=== PATIENT | female | born 1950 | race Caucasian/White ===

== ENCOUNTER → 2020-08-02 11:03 | Outpatient (CLI) | payer MEDICARE, BC, SELFPAY ==
--- NOTE | 2020-08-02 | DI.MG.S_ITS ---
BILATERAL DIGITAL SCREENING MAMMOGRAM 3D/2D WITH CAD: 08/02/2020 CLINICAL: Routine screening. Family history of breast cancer. Comparison is made to exams dated: 01/05/2019 mammogram, 11/08/2017 mammogram, and 08/17/2016 mammogram - [facility] There are scattered fibroglandular elements in both breasts. Current study was also evaluated with a Computer Aided Detection (CAD) system. No significant masses, calcifications, or other findings are seen in either breast. There has been no significant interval change. IMPRESSION: NEGATIVE There is no mammographic evidence of malignancy. A 1 year screening mammogram is recommended. This exam was interpreted at Station ID: [id number]. NOTE: For mammograms, a report in lay terms will be sent to the patient. Approximately 15% of breast malignancies will not be visualized mammographically. In the management of a palpable breast mass, a negative mammogram must not discourage biopsy of a clinically suspicious lesion. Electronically Signed By: Helen araya/marina:08/02/2020 12:52:31 letter sent: Normal Exam ACR BI-RADS Category 1: Negative [id number]
== END ==
PROVIDERS: PCP Family Medicine; Referring Provider Family Medicine; Visit Provider Family Medicine
DX: Z12.31 Encounter for screening mammogram for malignant neoplasm of breast (principal); Z80.3 Family history of malignant neoplasm of breast
CPT/HCPCS: 77063; 77067

== ENCOUNTER → 2020-08-02 11:14 | Outpatient (CLI) | payer MEDICARE, BC, SELFPAY | PROVIDERS: PCP Family Medicine; Referring Provider Orthopaedic Surgery Foot and Ankle Surgery; Visit Provider Orthopaedic Surgery Foot and Ankle Surgery | DX: Z01.818 Encounter for other preprocedural examination (principal) | CPT/HCPCS: 93005 ==

== ENCOUNTER → 2020-08-09 11:15 | Outpatient (CLI) | payer MEDICARE, BC, SELFPAY ==
[2020-08-10 14:46] LABS: COVID19 Sendout Not Detected (Not Detect)
== END ==
PROVIDERS: PCP Family Medicine; Visit Provider Nurse Practitioner
DX: Z11.59 Encounter for screening for other viral diseases (principal)
CPT/HCPCS: 87635

== ENCOUNTER 2020-08-12 08:52 | Day surgery (SDC) | payer MEDICARE, BC, SELFPAY ==
[2020-08-11 08:26] VITALS: BMI 40.0
[2020-08-12] VITALS (10 sets, daily range): BP systolic 108–164; BP diastolic 62–81; PULSE 63–78; RESP 12–21; TEMP 36.2–36.8; O2SAT 92–98; BMI 40.0; BMI 39.6
[2020-08-12] MEDS: ACETAMINOPHEN 325 MG TABLET 975 MG PO (09:17)
[2020-08-12] MEDS: LACTATED RINGERS 1,000 ML 42 ML IV (09:31)
[2020-08-12] MEDS: CEFAZOLIN 2 GM/100 ML FROZ.PIGGY IV (09:38)
--- NOTE | 2020-08-12 09:49 | PM.PREOP ---
Pre-operative Note COVID-19 COVID-19 status: Negative Interval Note History & Physical reviewed/Exam performed by Physician: Yes Changes to H&P: No
--- NOTE | 2020-08-12 10:13 | SUR.OPER ---
Supine on padded OR bed, head on pillow, arms secured on padded arm boards at <90 degrees abduction, legs uncrossed, safety belt at thigh, tape over blanket over lower left leg,gel bump under right thigh blanket stack under foot and right leg draped free
[2020-08-12] MEDS: BUPIVACAINE 0.25% W/ EPI 30 ML VIAL INJ (10:26)
[2020-08-12] MEDS: HALOPERIDOL 5 MG/ML VIAL 1 MG IV (11:27)
--- NOTE | 2020-08-12 11:27 | P.OP_ITS ---
Operative Date/Time/Diagnoses Date of procedure: 08/12/20 Time of procedure: 10:50 Pre-op diagnosis: Hallux rigidus right foot Hammertoe 2nd toe right foot Hammertoe 3rd toe right foot Post-op diagnosis: same Procedure & Clinicians Procedure: Cheilectomy great toe, right CPT code 46212 Rt T5 Hammertoe correction right 2nd toe CPT code 21086-39- T6 Hammertoe correction right 3rd toe CPT code 21243-29-A1 Same procedure as scheduled: Yes Indications: Patient is a 70-year-old female with symptomatic right hallux rigidus with a large dorsal loose body spur and right 2nd and 3rd hammertoes that are rigid. She has exhausted conservative treatment and desires surgery. We discussed options. She has requested a joint sparing procedure for her great toe. She understands that she has intra-articular arthritis of the great toe as well. She would like to proceed with a cheilectomy of the great toe and 2nd and 3rd toe hammertoe corrections. The risks and benefits of the procedure have been discussed with the patient even opportunity to ask questions. The risks of surgery include but are not limited to infection, malunion, nonunion, persistence of pain, damage to nerves and blood vessels, posttraumatic arthritis, DVT, PE, cardiopulmonary complications and . The patient expressed a thorough understanding of the risks and benefits of surgery and has elected to proceed. Consent was signed in the office. Surgeon: Marilin Young Click Yes if Unassisted: Yes Anesthesia Type: General and Local Operative Notes Findings: Great toe arthritis. Large dorsal loose body. Dorsal medial and lateral osteophytes. There is grade 3 and 4 cartilage loss in the dorsal 50% of the great toe joint. Thinning plantar centrally as well. Smaller osteophytes at the proximal phalanx. Second and 3rd toe rigid hammertoes Closure Type: primary Specimen(s): none sent Prosthetic devices, grafts, tissues, transplants, or devices: 045 K-wirex2 Estimated Blood Loss (mL): 5 Blood products transfused: none Tourniquet time (min): 53 Procedure in detail: Patient is seen in the preoperative area the site of surgery was marked informed consent confirmed. The patient was brought back to the operating room by the anesthesia team general anesthetic was administered. The patient was positioned in the supine position all bony prominences well padded. Well-padded thigh tourniquet was placed on the operative lower extremity and SCD on the contralateral lower extremity. Patient was prepped and draped in the standard sterile fashion. A formal time-out procedure was performed confirming the patient's side and site of surgery administration of appropriate preoperative antibiotics. All were in agreement. Attention was turned to the right lower extremity. Esmarch was used for exsanguination the tourniquet elevated on the thigh to 250 mm of mercury and stayed there for 53 minutes. Great toe cheilectomy: Dorsal incision was taken over the 1st MTP joint this was taken down sharply through the skin. Deep incision was made just medial to the extensor hallucis longus and this was retracted laterally. Capsulotomy was splint longitudinally exposing the large loose body. This was removed using a rongeur. Additional dorsal and mediolateral osteophytes removed with the rongeur. Next the TPS saw was used to create a dorsal cheilectomy at the metatarsal and the proximal phalanx removing approximately 1/3 of the joint height. Findings are listed as above. There is diffuse thinning of the cartilage. Was able to get range of motion dorsiflexion between 50 and 60? intraoperatively and plantar flexion 20?. Once this was completed the wound was irrigated. Bone wax was placed over the fresh bone surfaces and the capsulotomy was closed with 2-0 Vicryl. Subcutaneou s with 4-0 Monocryl and the skin with a 4-0 nylon. Attention was then turned to the hammertoe corrections: Second toe hammertoe correction: Attention was turned to the 2nd hammertoe elliptical incision over the PIP joint was made excising a small ellipse of full-thickness tissue and tendon. This exposed the condyles of the proximal phalanx. The collaterals were released and the distal aspect of the proximal phalanx was exposed. TPS was used to remove this. A curette was used to remove the articular surface from the middle phalanx base. There is also a flexor tightness of this digit so through the plantar plate incision was made and flexor tenotomy was completed. Next the bone ends were aligned. A 045 K-wire was placed in a retrograde fashion from the middle phalanx out the tip of the toe and then advanced antegrade into the proximal phalanx. This was checked on multiplanar fluoroscopy indicating appropriate alignment and placement of the pin. Third hammertoe correction: Attention was then turned to the 3rd toe rigid hammertoe and in the same fashion elliptical incision over the 3rd toe PIP joint was made excising a small ellipse of full-thickness 10 10 in tissue. The ex condyles of the proximal phalanx were exposed. Collaterals released and the distal aspect of the proximal phalanx was excised using the TPS saw. Curette was used to remove the articular surface of the middle phalanx. The toe did not have any excessive flexor tightness so a separate flexor tenotomy was not performed. And then in the same fashion a 045 K-wire was advanced retrograde from the middle phalanx at the tip of the toe and then antegrade back into the proximal phalanx. Alignment and position of hardware was checked on fluoroscopy. This was appropriate. Wounds were then irrigated and closed with 4-0 nylon using a good thick full-thickness tissues to incorporate the extensor tendon and skin into the repair for the hammertoes. Local anesthetic with 0.25% Marcaine with epinephrine was injected. Tourniquet was released. Toes pinked up appropriately. Dressings were placed with Xeroform gauze Andria and an Mina wrap and patient was placed into a postoperative shoe. She was awoken from anesthesia and taken to PACU in good condition. There no immediate complications from this procedure. Counts were correct. Complications: none Post-operative Condition: stable Disposition: PACU Plan for aftercare: Weightbear as tolerated flat foot or heel weight-bearing in the postoperative shoe. Keep dressing clean dry and intact. Pins will remain in place 4-6 weeks.
[2020-08-12] MEDS: fentaNYL 100 MCG/2 ML INJ IV (11:34)
[2020-08-12] MEDS: ONDANSETRON 4 MG/2 ML INJ IV (11:34)
[2020-08-12] MEDS: OXYCODONE IR 5 MG TABLET PO ×2 (12:07→13:31)
--- NOTE | 2020-08-12 13:05 | SUR.PHASEII ---
O2 sat 88-89% RA while dozing. Patient easily aroused. I.S. provided and instructions given. Patient able to inhale to 1250mmhg.
== END 2020-08-12 13:42 | disposition home or self-care (01) ==
PROVIDERS: PCP Family Medicine; Referring Provider Orthopaedic Surgery Foot and Ankle Surgery; Visit Provider Orthopaedic Surgery Foot and Ankle Surgery
PROC: (CPT 28285; principal; 2020-08-12 09:45)
DX: M20.21 Hallux rigidus, right foot (principal); M20.41 Other hammer toe(s) (acquired), right foot; M19.071 Primary osteoarthritis, right ankle and foot
CPT/HCPCS: 28289; 28285 ×2; J0690; J1100; J1630; J2405; J2704; J3010